=== PATIENT | male | born 1955 | race Caucasian/White ===

== ENCOUNTER 2018-04-20 21:41 | Observation (INO) | payer BC ==
[2018-04-20] MEDS ORDERED: ASPIRIN 81 MG PO STA (21:57)
--- NOTE | 2018-04-20 21:57 | ED ---
Chest Pain HPI - General Chief Complaint: Chest Pain Stated Complaint: Chest pressure Time Seen by Provider: 04/20/18 21:55 Source: patient, family Mode of arrival: wheelchair Limitations: no limitations - History of Present Illness Initial Comments: Wendy is a 62-year-old male with a history of hypertension hyperlipidemia and a distant history of gastric cancer which was treated surgically 10 years ago. Patient presents to the emergency department for evaluation of he describes as severe indigestion. Patient reports he has multiple food ALLERGIES and food sensitivities. He didn't eat a breakfast scramble this morning and had mushrooms and notes that in the past much or subcostal him some diarrhea. Patient reports that throughout the entire day he has had burning epigastric and retrosternal discomfort. He has taken Prilosec and chewable antacids with no relief. The discomfort is associated with anorexia and decreased appetite, no shortness of breath, dyspnea, diaphoresis. The discomfort is not exertional. The patient has no known cardiac history. No family history of early cardiac disease. - Related Data Home Medications Medication Instructions Recorded Confirmed Allopurinol [Zyloprim] 300 mg PO DAILY 04/20/18 04/21/18 Lisinopril 20 mg PO DAILY 04/20/18 04/21/18 Celecoxib [CeleBREX] 200 mg PO DAILY 04/21/18 04/21/18 Allergies Allergy/AdvReac Type Severity Reaction Status Date / Time chocolate flavor Allergy Rash/Hives Verified 04/21/18 00:51 Fish Containing Products Allergy Anaphylaxis Verified 04/21/18 00:51 shellfish derived [Shellfish] Allergy Anaphylaxis Verified 04/21/18 00:51 Review of Systems ROS Statement: Those systems with pertinent positive or pertinent negative responses have been documented in the HPI. ROS Other: All systems not noted in ROS Statement are negative. EKG Findings - EKG Comments: EKG Findings:: EKG obtained at 2202, rate is 71, rhythm is sinus, normal axis, normal intervals, NV 180, QRS 104, QTC 421. She no acute ST elevations or depressions no evidence of acute ischemia or infarction Past Medical History Past Medical History: Cancer, GERD/Reflux, Hypertension, Osteoarthritis (OA) Additional Past Medical History / Comment(s): gout History of Any Multi-Drug Resistant Organisms: None Reported Past Surgical History: Bowel Resection, Hernia Repair, Orthopedic Surgery Additional Past Surgical History / Comment(s): stomach cancer Past Psychological History: No Psychological Hx Reported Smoking Status: Never smoker Past Alcohol Use History: Daily Past Drug Use History: None Reported - Past Family History Father Family Medical History: AFIB Mother Family Medical History: AFIB, AICD/Pacemaker, Cancer Additional Family Medical History / Comment(s): breast CA, stomach CA General Exam Limitations: no limitations Course Vital Signs 04/20/18 04/20/18 04/20/18 21:44 22:25 22:40 Temperature 98.7 F 98.1 F Pulse Rate 85 62 66 Respiratory 18 16 16 Rate Blood Pressure 159/90 141/86 141/86 O2 Sat by Pulse 98 94 L 98 Oximetry 04/21/18 00:43 Temperature 98.1 F Pulse Rate 66 Respiratory 15 Rate Blood Pressure 115/52 O2 Sat by Pulse 98 Oximetry Chest Pain [facility] The patient was seen and evaluated Is a 62-year-old male with a history of hypertension and hyperlipidemia who presents with retrosternal chest pain and burning which has not resolved with treatment with [id number] antacids. Patient has seen cardiology in the past, his last stress test was greater than 2 years ago he has never had a cardiac catheterization. Cardiac workup was ordered EKG is nonischemic Labs were unremarkable Patient received aspirin and a GI cocktail he reported minimal improvement in his symptoms. Considering the patient's risk factors i do feel he warrants admission for further evaluation by cardiology HEART Score 3 I discussed with the patient options for discharge home and close follow-up with primary care and cardiology versus observation for evaluation by cardiology. Patient states that based on how he is feeling at this time is not comfortable with discharge home. Patient care discussed with Dr. Garduno who accepts admission with consult to cardiology Disposition Clinical Impression: Chest pain Disposition: ADMITTED IP TO THIS HOSP Condition: Stable Is patient prescribed a controlled substance at d/c from ED?: No
[2018-04-20 22:09] LABS: Basophils % (A) 0 %; Eosinophils # (A) 0.2 k/uL (0-0.7); Eosinophils % (A) 3 %; HCT 45.6 % (39.0-53.0); HGB 15.2 gm/dL (13.0-17.5); Lymphocytes # (A) 1.4 k/uL (1.0-4.8); Lymphocytes % (A) 16 %; MCH 30.3 pg (25.0-35.0); MCHC 33.5 g/dL (31.0-37.0); MCV 90.4 fL (80.0-100.0); Mean Platelet Volume 6.2; Monocytes # (A) 0.4 k/uL (0-1.0); Monocytes % (A) 4 %; Neutrophils # (A) 6.5 k/uL (1.3-7.7); Neutrophils % (A) 76 %; Platelet Count 185 k/uL (150-450); RBC 5.04 m/uL (4.30-5.90); WBC 8.7 k/uL (3.8-10.6)
[2018-04-20] MEDS ORDERED: MAG HYDROX/AL HYDROX/SIMETH 30 ML, HYOSCYAMINE ELIXIR 10 ML, CIMETIDINE HCL 300 MG, LID... PO STA ×4 (22:12)
[2018-04-20 22:18] LABS: ALT 38 U/L (21-72); AST 35 U/L (17-59); Alkaline Phosphatase 82 U/L (38-126); Anion Gap 8 mmol/L; Blood Urea Nitrogen 23 mg/dL (9-20); Calcium 9.4 mg/dL (8.4-10.2); Carbon Dioxide 20 mmol/L (22-30); Chloride 110 mmol/L (98-107); Glucose 104 mg/dL (74-99); Magnesium 2.2 mg/dL (1.6-2.3); Potassium 4.4 mmol/L (3.5-5.1); Sodium 138 mmol/L (137-145); Total Bilirubin 0.5 mg/dL (0.2-1.3); Total Protein 6.7 g/dL (6.3-8.2)
--- NOTE | 2018-04-20 22:27 | XR ---
EXAMINATION TYPE: XR chest 2V DATE OF EXAM: 04/20/2018 COMPARISON: 07/15/2010 HISTORY: Allergic reaction. Chest pain TECHNIQUE: Frontal and lateral views of the chest are obtained. FINDINGS: Heart and mediastinum are normal. Lungs are clear. Diaphragm is normal. There is spurring in the thoracic spine. There are chest leads. Bony thorax is intact. IMPRESSION: No active cardiopulmonary disease. No change.
[2018-04-20 22:32] LABS: Partial Thromboplastin Time 23.4 sec (22.0-30.0); Prothrombin Time 9.6 sec (9.0-12.0)
[2018-04-20] MEDS ORDERED: SODIUM CHLORIDE 0.9% 1,000 ML IV ONE (22:47)
[2018-04-21] MEDS ORDERED: NITROGLYCERIN SL TABS 0.4 MG TAB SUBLINGUAL PRN (00:08)
[2018-04-21] MEDS ORDERED: MAG HYDROX/AL HYDROX/SIMETH 30 ML CUP PO PRN ×2 (00:48→09:57)
[2018-04-21 01:03] VITALS: BMI 33.0
[2018-04-21] MEDS ORDERED: ONDANSETRON 4 MG/2 ML VIAL IVP PRN (01:17)
[2018-04-21] MEDS: MORPHINE SULFATE 4 MG/ML SYRINGE IVP PRN ×2 (01:23→23:40)
[2018-04-21 04:45] LABS: Creatine Kinase 78 U/L (55-170)
[2018-04-21 04:58] LABS: Creatine Kinase MB 1.3 ng/mL (0.0-2.4); Troponin I <0.012 ng/mL (0.000-0.034)
--- NOTE | 2018-04-21 09:01 | P.HPIM ---
History of Present Illness H&P Date: 04/21/18 Chief Complaint: chest pain This is a 62-year-old male patient of Dr. Zavala. Patient presented to the emergency room with complaints of indigestion chest pain that started yesterday. Patient stated that a few days ago he did have an episode of chest pressure that lasted a couple minutes and then subsided. Patient also admits that he is very sensitive to food and patient states he did consume greasy food yesterday. Patient states he took Prilosec and found no relief with the pain and presented to the emergency room. Patient is known past medical history of gastric cancer proximally 10 years ago at which she received surgery but did not require radiation and chemotherapy. Additional medical history includes hypertension, hyperlipidemia and patient states he drinks 4-5 beers a night. EKG completed showing normal sinus rhythm possible left atrial enlargement. Chest x-ray completed showing no active cardiopulmonary disease. No change. Troponins negative. At this time patient denies any chest pain or shortness of breath. Patient is still complaining of indigestion pain. Patient denies nausea vomiting or diarrhea. Patient denies any urinary burning or frequency. Cardiology services have been consulted Review of Systems please refer to HPI otherwise unremarkable Past Medical History Past Medical History: Cancer, GERD/Reflux, Hypertension, Osteoarthritis (OA) Additional Past Medical History / Comment(s): gout History of Any Multi-Drug Resistant Organisms: None Reported Past Surgical History: Bowel Resection, Hernia Repair, Orthopedic Surgery Additional Past Surgical History / Comment(s): stomach cancer Past Anesthesia/Blood Transfusion Reactions: No Reported Reaction Past Psychological History: No Psychological Hx Reported Smoking Status: Never smoker Past Alcohol Use History: Daily Past Drug Use History: None Reported - Past Family History Father Family Medical History: AFIB Mother Family Medical History: AFIB, AICD/Pacemaker, Cancer Additional Family Medical History / Comment(s): breast CA, stomach CA Medications and Allergies Home Medications Medication Instructions Recorded Confirmed Type Allopurinol [Zyloprim] 300 mg PO DAILY 04/20/18 04/21/18 History Lisinopril 20 mg PO DAILY 04/20/18 04/21/18 History Celecoxib [CeleBREX] 200 mg PO DAILY 04/21/18 04/21/18 History Allergies Allergy/AdvReac Type Severity Reaction Status Date / Time chocolate flavor Allergy Rash/Hives Verified 04/21/18 07:50 Fish Containing Products Allergy Anaphylaxis Verified 04/21/18 07:50 shellfish derived [Shellfish] Allergy Anaphylaxis Verified 04/21/18 07:50 Physical Exam Vitals: Vital Signs Temp Pulse Pulse Resp BP BP Pulse Ox 04/21/18 08:00 99.3 F 71 18 121/76 98 04/21/18 04:00 97.4 F L 61 16 108/67 99 04/21/18 03:51 16 04/21/18 01:31 16 04/21/18 00:49 97.6 F 56 L 16 124/74 98 04/21/18 00:43 98.1 F 66 15 115/52 98 04/20/18 22:40 66 16 141/86 98 04/20/18 22:25 98.1 F 62 16 141/86 94 L 04/20/18 21:44 98.7 F 85 18 159/90 98 Intake and Output 04/20/18 04/21/18 04/21/18 22:59 06:59 14:59 Other: # Voids 1 Weight 104.326 kg 104.3 kg Head normocephalic Neck supple Lungs clear to auscultation bilaterally no wheezing or crackles Heart regular rate and rhythm S1-S2, no rub or gallop Abdomen mid epigastric tenderness with palpation Extremities no edema Neuro alert and orientated to 3 Results CBC & Chem 7: 04/20/18 21:59 04/20/18 21:59 Labs: Abnormal Lab Results - Last 24 Hours (Table) 04/20/18 Range/Units 21:59 Chloride 110 H (98-107) mmol/L Carbon Dioxide 20 L (22-30) mmol/L BUN 23 H (9-20) mg/dL Glucose 104 H (74-99) mg/dL Thrombosis Risk Factor Assmnt - Choose All That Apply Each Risk Factor Represents 2 Points: Age 61-74 years Thrombosis Risk Factor Assessment Total Risk Factor Score: 2 Thrombosis Risk Factor Assessment Level: Low Risk Assessment and Plan Assessment: 1. Indigestion. Chest x-ray negative. EKG showing normal sinus rhythm. Possible left atrial enlargement. Troponins negative. Cardiology service consulted. Amylase and lipase ordered 2. History of gastric cancer 10 years prior. Patient states he had surgery did not require radiation or chemotherapy 3. History of GERD 4. History of essential hypertension 5. History of hyperlipidemia 6. Alcohol consumption. Patient states he drinks 4-5 beers a night Time with Patient: Greater than 30 (Greater than 60% of the total time spent in counseling and coordination of care. I performed an examination of the patient and discussed their management with the Nurse Practitioner. I have reviewed the Nurse Practitioner's notes and agree with the documented findings and plan of care)
[2018-04-21 09:44] LABS: HCT 42.6 % (39.0-53.0); HGB 14.1 gm/dL (13.0-17.5); MCH 30.1 pg (25.0-35.0); MCHC 33.1 g/dL (31.0-37.0); MCV 90.9 fL (80.0-100.0); RBC 4.68 m/uL (4.30-5.90); RDW 13.9 % (11.5-15.5)
[2018-04-21 09:45] LABS: Basophils % (A) 0 %; Eosinophils # (A) 0.2 k/uL (0-0.7); Eosinophils % (A) 3 %; Lymphocytes # (A) 0.9 k/uL (1.0-4.8); Lymphocytes % (A) 12 %; Mean Platelet Volume 6.3; Monocytes # (A) 0.3 k/uL (0-1.0); Monocytes % (A) 4 %; Neutrophils # (A) 5.5 k/uL (1.3-7.7); Neutrophils % (A) 79 %; Platelet Count 173 k/uL (150-450)
[2018-04-21 09:53] LABS: ALT 35 U/L (21-72); AST 23 U/L (17-59); Albumin 3.6 g/dL (3.5-5.0); Alkaline Phosphatase 70 U/L (38-126); Amylase 52 U/L (30-110); Anion Gap 6 mmol/L; Blood Urea Nitrogen 18 mg/dL (9-20); Calcium 8.9 mg/dL (8.4-10.2); Carbon Dioxide 24 mmol/L (22-30); Chloride 110 mmol/L (98-107); Glucose 98 mg/dL (74-99); Potassium 4.4 mmol/L (3.5-5.1); Sodium 140 mmol/L (137-145); Total Bilirubin 0.7 mg/dL (0.2-1.3); Total Protein 6.2 g/dL (6.3-8.2)
[2018-04-21] MEDS ORDERED: COLCHICINE 0.6 MG EACH PO PRN (09:55)
[2018-04-21 10:08] LABS: Creatine Kinase 68 U/L (55-170)
[2018-04-21 10:22] LABS: Troponin I <0.012 ng/mL (0.000-0.034)
--- NOTE | 2018-04-21 10:38 | US ---
EXAMINATION TYPE: US abdomen complete DATE OF EXAM: 04/21/2018 COMPARISON: NONE CLINICAL HISTORY: epigastric pain. Epigastric pain, NPO EXAM MEASUREMENTS: Liver Length: 15.4 cm Gallbladder Wall: 0.2 cm CHD: 0.3 cm Spleen: 11.3 cm Right Kidney: 11.0 x 4.9 x 6.3 cm Left Kidney: 12.1 x 4.4 x 4.7 cm Limited exam due to overlying bowel gas and patient habitus Pancreas: Head and tail not visualized due to overlying bowel gas. Body appears echogenic and heter ogenous. Liver: Scanned through ribs. Limited visualization due to bowel gas. Gallbladder: fold seen, wnl Evidence for sonographic Su's sign: neg CBD: Obscured by overlying bowel gas CHD: wnl Spleen: wnl Right Kidney: wnl Left Kidney: wnl Upper IVC: Obscured by overlying bowel gas Abd Aorta: Portions obscured by overlying bowel gas, limited visualization The pancreas is poorly visualized. The liver is normal in size without biliary dilatation. The gallbladder is unremarkable without cholelithiasis. The gallbladder wall measures 2 mm. The dista l common hepatic duct measures 3 mm. There is a negative sonographic Su's sign. The spleen is normal in size. Both kidneys appear normal. Visualized portions of aorta and IVC are normal. IMPRESSION: NORMAL ABDOMINAL ULTRASOUND.
[2018-04-21] MEDS: MELOXICAM 7.5 MG TAB PO SCH (11:28)
[2018-04-21] MEDS: LISINOPRIL 10 MG TAB PO SCH (11:28)
--- NOTE | 2018-04-21 11:40 | P.GSCN ---
History of Present Illness Consult date: 04/21/18 Reason for Consult: Chest pain, history of gastric cancer History of present illness: The patient's a 62-year-old man who presented to the emergency department with significant pain/pressure in the lower chest. He thought it could possibly be due to some acid reflux but he had never had anything this severe in the past. The reflux was more of an issue for him prior to his gastric surgery. Since then it occurs rarely. He will taken omeprazole. He has been out of omeprazole lately. He was concerned the chest pain could be from his heart so came into the emergency department. The pain and pressure was initially better after a GI cocktail yesterday. It is recurred today. No nausea or vomiting. No fevers or chills. No cough. No diarrhea or constipation. Denies shortness of breath. He did have a partial gastrectomy about 10 years ago at the [facility]. He had regular follow-up therefore 7 or 8 years. After that time his been following up with Dr. Ortez here in [facility]. His last EGD and colonoscopy were about 1.5-2 years ago and the patient reports it as normal. He 's never had significant esophagitis on his endoscopies. He did have a breakfast scramble yesterday consisting of scrambled eggs, sausage, brady, mushrooms. He will occasionally have problems if the mushrooms are freshly sliced versus canned. Nothing this severe however. Normally no fatty food problems. Review of Systems All systems: negative Past Medical History Past Medical History: Cancer, GERD/Reflux, Hypertension, Osteoarthritis (OA) Additional Past Medical History / Comment(s): gout History of Any Multi-Drug Resistant Organisms: None Reported Past Surgical History: Bowel Resection, Hernia Repair, Orthopedic Surgery Additional Past Surgical History / Comment(s): stomach cancer Past Anesthesia/Blood Transfusion Reactions: No Reported Reaction Past Psychological History: No Psychological Hx Reported Smoking Status: Never smoker Past Alcohol Use History: Daily Past Drug Use History: None Reported - Past Family History Father Family Medical History: AFIB Mother Family Medical History: AFIB, AICD/Pacemaker, Cancer Additional Family Medical History / Comment(s): breast CA, stomach CA Medications and Allergies Home Medications Medication Instructions Recorded Confirmed Type Allopurinol [Zyloprim] 300 mg PO DAILY 04/20/18 04/21/18 History Lisinopril 20 mg PO DAILY 04/20/18 04/21/18 History Celecoxib [CeleBREX] 200 mg PO DAILY 04/21/18 04/21/18 History Allergies Allergy/AdvReac Type Severity Reaction Status Date / Time chocolate flavor Allergy Rash/Hives Verified 04/21/18 07:50 Fish Containing Products Allergy Anaphylaxis Verified 04/21/18 07:50 shellfish derived [Shellfish] Allergy Anaphylaxis Verified 04/21/18 07:50 Surgical - Exam Osteopathic Statement: *. No significant issues noted on an osteopathic structural exam other than those noted in the History and Physical/Consult. Vital Signs Temp Pulse Resp BP Pulse Ox 98.7 F 85 18 159/90 98 04/20/18 21:44 04/20/18 21:44 04/20/18 21:44 04/20/18 21:44 04/20/18 21:44 - General well developed, well nourished, no distress - Eyes normal ocular movement - Neck trachea midline, no lymphadectomy - Respiratory normal expansion, normal respiratory effort, clear to auscultation - Cardiovascular Rhythm: regular Abnormal Heart Sounds: systolic murmur (Faint 1 to 2/6 systolic ejection murmur) - Abdomen Abdomen: soft, non tender, bowel sounds, no guarding, no rigid, no rebound, no distended Results - Labs 04/21/18 09:06 04/21/18 09:06 Abnormal Lab Results - Last 24 Hours (Table) 04/20/18 04/21/18 04/21/18 Range/Units 21:59 09:06 09:06 Lymphocytes # 0.9 L (1.0-4.8) k/uL Chloride 110 H 110 H (98-107) mmol/L Carbon Dioxide 20 L (22-30) mmol/L BUN 23 H (9-20) mg/dL Glucose 104 H (74-99) mg/dL Total Protein 6.2 L (6.3-8.2) g/dL Diabetes panel 04/20/18 04/21/18 Range/Units 21:59 09:06 Sodium 138 140 (137-145) mmol/L Potassium 4.4 4.4 (3.5-5.1) mmol/L Chloride 110 H 110 H (98-107) mmol/L Carbon Dioxide 20 L 24 (22-30) mmol/L BUN 23 H 18 (9-20) mg/dL Creatinine 1.02 0.99 (0.66-1.25) mg/dL Glucose 104 H 98 (74-99) mg/dL Calcium 9.4 8.9 (8.4-10.2) mg/dL AST 35 23 (17-59) U/L ALT 38 35 (21-72) U/L Alkaline Phosphatase 82 70 (38-126) U/L Total Protein 6.7 6.2 L (6.3-8.2) g/dL Albumin 4.0 3.6 (3.5-5.0) g/dL Calcium panel 04/20/18 04/21/18 Range/Units 21:59 09:06 Calcium 9.4 8.9 (8.4-10.2) mg/dL Albumin 4.0 3.6 (3.5-5.0) g/dL Pituitary panel 04/20/18 04/21/18 Range/Units 21:59 09:06 Sodium 138 140 (137-145) mmol/L Potassium 4.4 4.4 (3.5-5.1) mmol/L Chloride 110 H 110 H (98-107) mmol/L Carbon Dioxide 20 L 24 (22-30) mmol/L BUN 23 H 18 (9-20) mg/dL Creatinine 1.02 0.99 (0.66-1.25) mg/dL Glucose 104 H 98 (74-99) mg/dL Calcium 9.4 8.9 (8.4-10.2) mg/dL Adrenal panel 04/20/18 04/21/18 Range/Units 21:59 09:06 Sodium 138 140 (137-145) mmol/L Potassium 4.4 4.4 (3.5-5.1) mmol/L Chloride 110 H 110 H (98-107) mmol/L Carbon Dioxide 20 L 24 (22-30) mmol/L BUN 23 H 18 (9-20) mg/dL Creatinine 1.02 0.99 (0.66-1.25) mg/dL Glucose 104 H 98 (74-99) mg/dL Calcium 9.4 8.9 (8.4-10.2) mg/dL Total Bilirubin 0.5 0.7 (0.2-1.3) mg/dL AST 35 23 (17-59) U/L ALT 38 35 (21-72) U/L Alkaline Phosphatase 82 70 (38-126) U/L Total Protein 6.7 6.2 L (6.3-8.2) g/dL Albumin 4.0 3.6 (3.5-5.0) g/dL Assessment and Plan (1) History of gastric cancer Current Visit: Yes Status: Acute Code(s): Z85.028 - PERSONAL HISTORY OF OTHER MALIGNANT NEOPLASM OF STOMACH SNOMED Code(s): 127250290 (2) GERD (gastroesophageal reflux disease) Current Visit: Yes Status: Acute Code(s): K21.9 - GASTRO-ESOPHAGEAL REFLUX DISEASE WITHOUT ESOPHAGITIS SNOMED Code(s): 345703249 (3) Chest pain Current Visit: Yes Status: Acute Code(s): R07.9 - CHEST PAIN, UNSPECIFIED SNOMED Code(s): 31736421 Plan: Awaiting cardiology recommendations. The patient has just had a ultrasound of his abdomen performed. Think he needs a repeat EGD performed. Since Dr. Choi has done this in the past I did contact Dr. Choi who will do this for the patient tomorrow.
[2018-04-21] MEDS: ALLOPURINOL 300 MG TAB PO SCH (13:09)
--- NOTE | 2018-04-21 14:57 | P.CONS ---
History of Present Illness - Reason for Consult Consult date: 04/21/18 Chest pain - History of Present Illness This is a 62-year-old male patient with past medical history for hypertension, borderline hyperlipidemia not on medication, history of gastric cancer treated at [facility] with removal of two thirds of the stomach not requiring chemotherapy or radiation therapy. His last EGD and colonoscopy done one and half years ago. Patient complains of heaviness in his chest that increases with deep inspiration. He states it started after he had breakfast around 10 or 11 in the morning and felt like indigestion. He states it feels like a big hollow spot in his chest and hurts. He denies having any nausea or vomiting. No diarrhea. He states he has feels like he has no energy. He also feels that liquids are not going down like they should. He denies having this sensation in the past. He does have food ALLERGIES and initially thought this was related to a food ALLERGY and took Benadryl on his way here that did not seem to help. He did receive a GI cocktail and Maalox in the ER which seemed to help his discomfort. Patient denies history of myocardial infarction. He has not had a heart catheterization. He had a stress test done 2 years ago which was okay. Patient does drink 4-5 beers daily. He is been a lifelong nonsmoker. Patient was placed on the observation unit EKG reveals sinus mechanism with no acute ST-T wave changes. Chest x-ray reveals no active cardio pulmonary disease. Laboratory data review: WBC 7, hemoglobin 14.1, platelets 173, sodium 140, potassium 4.4, creatinine 0.99, cardiac enzymes negative on 3 draws, lipase 41. Current cardiac medications include lisinopril 20 mg daily. At the time of my exam: CONSTITUTIONAL: Denies fever. Denies chills. EYES: Denies blurred vision. Denies vision changes. Denies eye pain. EARS, NOSE, MOUTH & THROAT: Denies headache. Denies sore throat. Denies ear pain. CARDIOVASCULAR: Complains of chest pain. Denies shortness of breath. Denies orthopnea. Denies PND. Denies palpitations. RESPIRATORY: Denies cough. GASTROINTESTINAL: Complains of abdominal pain. Denies diarrhea. Denies constipation. Denies nausea. Denies vomiting. Complains of heartburn, complains of liquids not going down esophagus MUSCULOSKELETAL: Denies myalgias. Complains of pain to the left elbow. INTEGUMENTARY: Denies pruitis. Denies rash. NEUROLOGIC: Denies numbness. Denies tingling. Denies weakness. PSYCHIATRIC: Denies anxiety. Denies depression. ENDOCRINE: Denies fatigue. Denies weight change. Denies polydipsia. Denies polyurina. GENITOURINARY: Denies burning, hematuria or urgency with micturation. HEMATOLOGIC: Denies history of anemia. Denies bleeding. Blood pressure 121/76, heart rate 71, afebrile, maintaining oxygen saturation on room air. GENERAL: This is a 62-year-old male. He is sitting up in bed and appears to be comfortable and in no acute distress. HEENT: Head is atraumatic, normocephalic. Pupils are equal, round. Sclerae anicteric. Conjunctivae are clear. Mucous membranes of the mouth are moist. Neck is supple. There is no jugular venous distention. No carotid bruit is heard. LUNGS: Clear to auscultation no wheezes, rales or rhonchi. No chest wall tenderness is noted on palpation or with deep breathing. HEART: Regular rate and rhythm without murmurs, rubs or gallops. S1 and S2 heard. ABDOMEN: Soft, epigastric tenderness. Bowel sounds are heard. No organomegaly noted. EXTREMITIES: No evidence of lower extremity edema and no calf tenderness noted. Left elbow warm to touch, red and swollen. VASCULAR: Radial and dorsalis pedis pulses palpated, no evidence of clubbing. NEUROLOGIC: Patient is awake, alert and oriented x3. ASSESSMENT Chest pain, atypical. An acute coronary event has been ruled out. Hypertension. Borderline hyperlipidemia. History of gastric cancer status post gastrectomy. Gastroesophageal reflux disease. Gout. Alcohol abuse. PLAN An acute coronary event has been ruled out. Exact etiology of chest pain is most likely secondary to gastric reflux, esophagitis. Consult general surgery. Patient is scheduled for EGD with Dr. Choi tomorrow. Monitor for alcohol withdrawal. Continue lisinopril 20 mg daily. Thank you kindly for this consultation. Nurse Practitioner note has been reviewed, I agree with a documented findings and plan of care. Patient was seen and examined. Past Medical History Past Medical History: Cancer, GERD/Reflux, Hypertension, Osteoarthritis (OA) Additional Past Medical History / Comment(s): gout History of Any Multi-Drug Resistant Organisms: None Reported Past Surgical History: Bowel Resection, Hernia Repair, Orthopedic Surgery Additional Past Surgical History / Comment(s): stomach cancer Past Anesthesia/Blood Transfusion Reactions: No Reported Reaction Past Psychological History: No Psychological Hx Reported Smoking Status: Never smoker Past Alcohol Use History: Daily Past Drug Use History: None Reported - Past Family History Father Family Medical History: AFIB Mother Family Medical History: AFIB, AICD/Pacemaker, Cancer Additional Family Medical History / Comment(s): breast CA, stomach CA Medications and Allergies Home Medications Medication Instructions Recorded Confirmed Type Allopurinol [Zyloprim] 300 mg PO DAILY 04/20/18 04/21/18 History Lisinopril 20 mg PO DAILY 04/20/18 04/21/18 History Celecoxib [CeleBREX] 200 mg PO DAILY 04/21/18 04/21/18 History Allergies Allergy/AdvReac Type Severity Reaction Status Date / Time chocolate flavor Allergy Rash/Hives Verified 04/21/18 07:50 Fish Containing Products Allergy Anaphylaxis Verified 04/21/18 07:50 shellfish derived [Shellfish] Allergy Anaphylaxis Verified 04/21/18 07:50 Physical Exam Vitals: Vital Signs Temp Pulse Pulse Resp BP BP Pulse Ox 04/21/18 08:00 99.3 F 71 18 121/76 98 04/21/18 04:00 97.4 F L 61 16 108/67 99 04/21/18 03:51 16 04/21/18 01:31 16 04/21/18 00:49 97.6 F 56 L 16 124/74 98 04/21/18 00:43 98.1 F 66 15 115/52 98 04/20/18 22:40 66 16 141/86 98 04/20/18 22:25 98.1 F 62 16 141/86 94 L 04/20/18 21:44 98.7 F 85 18 159/90 98 Intake and Output 04/20/18 04/21/18 04/21/18 22:59 06:59 14:59 Other: # Voids 1 Weight 104.326 kg 104.3 kg Results CBC & Chem 7: 04/21/18 09:06 04/21/18 09:06 Labs: Abnormal Lab Results - Last 24 Hours (Table) 04/20/18 Range/Units 21:59 Chloride 110 H (98-107) mmol/L Carbon Dioxide 20 L (22-30) mmol/L BUN 23 H (9-20) mg/dL Glucose 104 H (74-99) mg/dL
--- NOTE | 2018-04-21 15:00 | P.CRDCN ---
History of Present Illness Consult date: 04/21/18 History of present illness: This is a 62-year-old male patient with past medical history for hypertension, borderline hyperlipidemia not on medication, history of gastric cancer treated at [facility] with removal of two thirds of the stomach not requiring chemotherapy or radiation therapy. His last EGD and colonoscopy done one and half years ago. Patient complains of heaviness in his chest that increases with deep inspiration. He states it started after he had breakfast around 10 or 11 in the morning and felt like indigestion. He states it feels like a big hollow spot in his chest and hurts. He denies having any nausea or vomiting. No diarrhea. He states he has feels like he has no energy. He also feels that liquids are not going down like they should. He denies having this sensation in the past. He does have food ALLERGIES and initially thought this was related to a food ALLERGY and took Benadryl on his way here that did not seem to help. He did receive a GI cocktail and Maalox in the ER which seemed to help his discomfort. Patient denies history of myocardial infarction. He has not had a heart catheterization. He had a stress test done 2 years ago which was okay. Patient does drink 4-5 beers daily. He is been a lifelong nonsmoker. Patient was placed on the observation unit EKG reveals sinus mechanism with no acute ST-T wave changes. Chest x-ray reveals no active cardio pulmonary disease. Laboratory data review: WBC 7, hemoglobin 14.1, platelets 173, sodium 140, potassium 4.4, creatinine 0.99, cardiac enzymes negative on 3 draws, lipase 41. Current cardiac medications include lisinopril 20 mg daily. At the time of my exam: CONSTITUTIONAL: Denies fever. Denies chills. EYES: Denies blurred vision. Denies vision changes. Denies eye pain. EARS, NOSE, MOUTH & THROAT: Denies headache. Denies sore throat. Denies ear pain. CARDIOVASCULAR: Complains of chest pain. Denies shortness of breath. Denies orthopnea. Denies PND. Denies palpitations. RESPIRATORY: Denies cough. GASTROINTESTINAL: Complains of abdominal pain. Denies diarrhea. Denies constipation. Denies nausea. Denies vomiting. Complains of heartburn, complains of liquids not going down esophagus MUSCULOSKELETAL: Denies myalgias. Complains of pain to the left elbow. INTEGUMENTARY: Denies pruitis. Denies rash. NEUROLOGIC: Denies numbness. Denies tingling. Denies weakness. PSYCHIATRIC: Denies anxiety. Denies depression. ENDOCRINE: Denies fatigue. Denies weight change. Denies polydipsia. Denies polyurina. GENITOURINARY: Denies burning, hematuria or urgency with micturation. HEMATOLOGIC: Denies history of anemia. Denies bleeding. Blood pressure 121/76, heart rate 71, afebrile, maintaining oxygen saturation on room air. GENERAL: This is a 62-year-old male. He is sitting up in bed and appears to be comfortable and in no acute distress. HEENT: Head is atraumatic, normocephalic. Pupils are equal, round. Sclerae anicteric. Conjunctivae are clear. Mucous membranes of the mouth are moist. Neck is supple. There is no jugular venous distention. No carotid bruit is heard. LUNGS: Clear to auscultation no wheezes, rales or rhonchi. No chest wall tenderness is noted on palpation or with deep breathing. HEART: Regular rate and rhythm without murmurs, rubs or gallops. S1 and S2 heard. ABDOMEN: Soft, epigastric tenderness. Bowel sounds are heard. No organomegaly noted. EXTREMITIES: No evidence of lower extremity edema and no calf tenderness noted. Left elbow warm to touch, red and swollen. VASCULAR: Radial and dorsalis pedis pulses palpated, no evidence of clubbing. NEUROLOGIC: Patient is awake, alert and oriented x3. ASSESSMENT Chest pain, atypical. An acute coronary event has been ruled out. Hypertension. Borderline hyperlipidemia. History of gastric cancer status post gastrectomy. Gastroesophageal reflux disease. Gout. Alcohol abuse. PLAN An acute coronary event has been ruled out. Exact etiology of chest pain is most likely secondary to gastric reflux, esophagitis. Consult general surgery. Patient is scheduled for EGD with Dr. Choi tomorrow. Monitor for alcohol withdrawal. Continue lisinopril 20 mg daily. Thank you kindly for this consultation. Nurse Practitioner note has been reviewed, I agree with a documented findings and plan of care. Patient was seen and examined. Past Medical History Past Medical History: Cancer, GERD/Reflux, Hypertension, Osteoarthritis (OA) Additional Past Medical History / Comment(s): gout History of Any Multi-Drug Resistant Organisms: None Reported Past Surgical History: Bowel Resection, Hernia Repair, Orthopedic Surgery Additional Past Surgical History / Comment(s): stomach cancer Past Anesthesia/Blood Transfusion Reactions: No Reported Reaction Past Psychological History: No Psychological Hx Reported Smoking Status: Never smoker Past Alcohol Use History: Daily Past Drug Use History: None Reported - Past Family History Father Family Medical History: AFIB Mother Family Medical History: AFIB, AICD/Pacemaker, Cancer Additional Family Medical History / Comment(s): breast CA, stomach CA Medications and Allergies Home Medications Medication Instructions Recorded Confirmed Type Allopurinol [Zyloprim] 300 mg PO DAILY 04/20/18 04/21/18 History Lisinopril 20 mg PO DAILY 04/20/18 04/21/18 History Celecoxib [CeleBREX] 200 mg PO DAILY 04/21/18 04/21/18 History Allergies Allergy/AdvReac Type Severity Reaction Status Date / Time chocolate flavor Allergy Rash/Hives Verified 04/21/18 07:50 Fish Containing Products Allergy Anaphylaxis Verified 04/21/18 07:50 shellfish derived [Shellfish] Allergy Anaphylaxis Verified 04/21/18 07:50 Physical Exam Vitals: Vital Signs Temp Pulse Pulse Resp BP BP Pulse Ox 04/21/18 12:00 98.5 F 66 18 130/88 98 04/21/18 08:30 18 04/21/18 08:00 99.3 F 71 18 121/76 98 04/21/18 04:00 97.4 F L 61 16 108/67 99 04/21/18 03:51 16 04/21/18 01:31 16 04/21/18 00:49 97.6 F 56 L 16 124/74 98 04/21/18 00:43 98.1 F 66 15 115/52 98 04/20/18 22:40 66 16 141/86 98 04/20/18 22:25 98.1 F 62 16 141/86 94 L 04/20/18 21:44 98.7 F 85 18 159/90 98 Intake and Output 04/20/18 04/21/18 04/21/18 22:59 06:59 14:59 Intake Total 360 Balance 360 Intake: Oral 360 Other: Voiding Method Toilet # Voids 1 Weight 104.326 kg 104.3 kg Results 04/21/18 09:06 04/21/18 09:06 Cardiac Enzymes 04/20/18 04/20/18 04/21/18 Range/Units 21:59 21:59 03:55 AST 35 (17-59) U/L CK-MB (CK-2) 1.3 (0.0-2.4) ng/mL Troponin I <0.012 <0.012 (0.000-0.034) ng/mL 04/21/18 04/21/18 Range/Units 09:06 09:06 AST 23 (17-59) U/L CK-MB (CK-2) 1.0 (0.0-2.4) ng/mL Troponin I <0.012 (0.000-0.034) ng/mL Coagulation 04/20/18 Range/Units 21:59 PT 9.6 (9.0-12.0) sec APTT 23.4 (22.0-30.0) sec CBC 04/20/18 04/21/18 Range/Units 21:59 09:06 WBC 8.7 7.0 (3.8-10.6) k/uL RBC 5.04 4.68 (4.30-5.90) m/uL Hgb 15.2 14.1 (13.0-17.5) gm/dL Hct 45.6 42.6 (39.0-53.0) % Plt Count 185 173 (150-450) k/uL Comprehensive Metabolic Panel 04/20/18 04/21/18 Range/Units 21:59 09:06 Sodium 138 140 (137-145) mmol/L Potassium 4.4 4.4 (3.5-5.1) mmol/L Chloride 110 H 110 H (98-107) mmol/L Carbon Dioxide 20 L 24 (22-30) mmol/L BUN 23 H 18 (9-20) mg/dL Creatinine 1.02 0.99 (0.66-1.25) mg/dL Glucose 104 H 98 (74-99) mg/dL Calcium 9.4 8.9 (8.4-10.2) mg/dL AST 35 23 (17-59) U/L ALT 38 35 (21-72) U/L Alkaline Phosphatase 82 70 (38-126) U/L Total Protein 6.7 6.2 L (6.3-8.2) g/dL Albumin 4.0 3.6 (3.5-5.0) g/dL Current Medications Generic Name Dose Route Start Last Admin Trade Name Freq PRN Reason Stop Dose Admin Al Hydroxide/Mg Hydroxide 30 ml 04/21/18 09:57 Maalox PO Q4HR PRN GI Upset Allopurinol 300 mg 04/21/18 09:00 04/21/18 13:09 Zyloprim PO 300 mg DAILY PARVEZ Administration Aspirin 325 mg 04/22/18 09:00 Aspirin PO DAILY PARVEZ Colchicine 0.6 mg 04/21/18 09:55 04/21/18 13:09 Colcrys PO 0.6 mg BID PRN Administration Pain Lisinopril 10 mg 04/21/18 09:00 04/21/18 11:28 Zestril PO 10 mg DAILY PARVEZ Administration Meloxicam 7.5 mg 04/21/18 09:00 04/21/18 11:28 Mobic PO 7.5 mg DAILY PARVEZ Administration Morphine Sulfate 4 mg 04/21/18 01:16 04/21/18 01:23 Morphine Sulfate (Inj) IVP 4 mg Q4HR PRN Administration Pain Nitroglycerin 0.4 mg 04/21/18 00:08 Nitrostat SUBLINGUAL Q5M PRN Chest Pain Ondansetron HCl 4 mg 04/21/18 01:17 Zofran IVP Q6HR PRN Nausea And Vomiting Pantoprazole Sodium 40 mg 04/22/18 07:30 Protonix PO AC-BRKFST PARVEZ Intake and Output 04/20/18 04/21/18 04/21/18 22:59 06:59 14:59 Intake Total 360 Balance 360 Intake: Oral 360 Other: Voiding Method Toilet # Voids 1 Weight 104.326 kg 104.3 kg 04/21/18 09:06 04/21/18 09:06
[2018-04-21] MEDS ORDERED: methylPREDNISolone SOD SUCCI 125 MG/2 ML VIAL IV STA (19:20)
[2018-04-22] MEDS ORDERED: PANTOPRAZOLE 40 MG TABLET PO SCH (07:30)
[2018-04-22] MEDS ORDERED: ASPIRIN 325 MG TAB PO SCH (09:00)
[2018-04-22 09:54] LABS: Basophils % (A) 0 %; Eosinophils % (A) 1 %; HCT 44.3 % (39.0-53.0); HGB 14.7 gm/dL (13.0-17.5); Lymphocytes # (A) 0.6 k/uL (1.0-4.8); Lymphocytes % (A) 9 %; MCH 29.8 pg (25.0-35.0); MCHC 33.1 g/dL (31.0-37.0); MCV 89.8 fL (80.0-100.0); Mean Platelet Volume 6.5; Monocytes # (A) 0.1 k/uL (0-1.0); Monocytes % (A) 2 %; Neutrophils # (A) 5.9 k/uL (1.3-7.7); Neutrophils % (A) 87 %; Platelet Count 203 k/uL (150-450); RBC 4.93 m/uL (4.30-5.90); RDW 13.6 % (11.5-15.5); WBC 6.8 k/uL (3.8-10.6)
[2018-04-22 10:09] LABS: ALT 29 U/L (21-72); AST 16 U/L (17-59); Albumin 3.7 g/dL (3.5-5.0); Alkaline Phosphatase 66 U/L (38-126); Anion Gap 6 mmol/L; Blood Urea Nitrogen 18 mg/dL (9-20); Calcium 9.5 mg/dL (8.4-10.2); Carbon Dioxide 24 mmol/L (22-30); Chloride 109 mmol/L (98-107); Cholesterol 266 mg/dL (<200); Glucose 125 mg/dL (74-99); HDL Cholesterol 51 mg/dL (40-60); LDL Cholesterol,Calculated 194 mg/dL (0-99); Potassium 4.5 mmol/L (3.5-5.1); Sodium 139 mmol/L (137-145); Total Bilirubin 0.6 mg/dL (0.2-1.3); Total Protein 6.4 g/dL (6.3-8.2); Triglycerides 103 mg/dL (<150)
--- NOTE | 2018-04-22 10:25 | ECHOF ---
Referral Reason:Chest pain and cardiomyopathy MEASUREMENTS -------- HEIGHT: 180.3 cm WEIGHT: 103.9 kg BP: 119/73 RVIDd: 2.4 cm (< 3.3) IVSd: 1.8 cm (0.6 - 1.1) LVIDd: 2.7 cm (3.9 - 5.3) LVPWd: 1.7 cm (0.6 - 1.1) IVSs: 2.0 cm LVIDs: 1.7 cm LVPWs: 1.9 cm Ao Diam: 3.5 cm (2.0 - 3.7) AV Cusp: 1.2 cm (1.5 - 2.6) LA Diam: 3.5 cm (2.7 - 3.8) MV EXCURSION: 14.230 mm (> 18.000) MV EF SLOPE: 72 mm/s (70 - 150) EPSS: 0.3 cm MV E Andrae: 0.64 m/s MV DecT: 151 ms MV A Andrae: 0.72 m/s MV E/A Ratio: 0.89 AV maxP.84 mmHg AV meanP.92 mmHg RAP: 5.00 mmHg RVSP: 12.27 mmHg FINDINGS -------- Sinus rhythm. This was a technically difficult study with suboptimal views. The left ventricular size is normal. There is severe concentric left ventricular hypertrophy. Ove rall left ventricular systolic function is normal with, an EF between 55 - 60 %. The right ventricle is normal in size and function. The left atrium is normal in size. The right atrium is normal in size. Lumason used Aortic valve is trileaflet and is mildly thickened. There is mild aortic stenosis present. Peak/m earl gradient across the Aortic Valve is 17.84mmHg / 8.92mmHg. There is trace mitral regurgitation. Trace tricuspid regurgitation present. The right ventricular systolic pressure, as measured by Dopp ler, is 12.27mmHg. The pulmonic valve was not well visualized. The aortic root size is normal. The pericardium is normal. CONCLUSIONS -------- 1. Sinus rhythm. 2. This was a technically difficult study with suboptimal views. 3. The left ventricular size is normal. 4. There is severe concentric left ventricular hypertrophy. 5. Overall left ventricular systolic function is normal with, an EF between 55 - 60 %. 6. The right ventricle is normal in size and function. 7. The left atrium is normal in size. 8. The right atrium is normal in size. 9. Lumason used 10. Aortic valve is trileaflet and is mildly thickened. 11. There is mild aortic stenosis present. 12. Peak/mean gradient across the Aortic Valve is 17.84mmHg / 8.92mmHg. 13. There is trace mitral regurgitation. 14. Trace tricuspid regurgitation present. 15. The right ventricular systolic pressure, as measured by Doppler, is 12.27mmHg. 16. The pulmonic valve was not well visualized. 17. The aortic root size is normal. 18. The pericardium is normal. MOLD BUNCH TRIMMER: Lakia Quiroz RDCS
[2018-04-22 11:54] VITALS: BP 116/73; PULSE 85; RESP 16; TEMP 98.1
--- NOTE | 2018-04-22 12:41 | P.DS ---
Providers Date of admission: 04/21/18 00:26 Expected date of discharge: 04/22/18 Attending physician: John Garduno Consults: 04/21/18 00:08 Consult Physician Urgent Consulting Provider: [facility] Consult Reason/Comments: chest pain Do you want consulting provider notified?: Yes, Notify in am 04/21/18 09:38 Consult Physician Routine Consulting Provider: Nat Roque Consult Reason/Comments: abdominal pain/esophageal gastritis Do you want consulting provider notified?: Yes Primary care physician: Keke Zavala [facility] Course: Discharge diagnosis 1. GERD with chest discomfort. Chest x-ray negative. EKG showing normal sinus rhythm. Possible left atrial enlargement. Troponins negative. Cardiology service consulted. Amylase and lipase WNL. Abdominal ultrasound completed showing normal abdominal ultrasound. Surgical service consulted due to patient' s history. Patient arranged to get EGD. Patient would like to go home and come back for outpatient EGD at this time. Patient to be set up for outpatient EGD with Dr. adhikari tomorrow. 2-D echo completed showing EF between 55 and 60%. Stress test completed results pending. Discussed case with Dinorah MELENDREZ per cardiology services patient has been cleared for discharge from cardiology services. 2. History of gastric cancer 10 years prior. Patient states he had surgery did not require radiation or chemotherapy 3. History of GERD 4. History of essential hypertension 5. History of hyperlipidemia 6. Alcohol consumption. Patient states he drinks 4-5 beers a night. Patient educated on alcohol cessation Hospital course This is a 62-year-old male patient of Dr. Zavala. Patient presented to the emergency room with complaints of indigestion chest pain that started yesterday. Patient stated that a few days ago he did have an episode of chest pressure that lasted a couple minutes and then subsided. Patient also admits that he is very sensitive to food and patient states he did consume greasy food yesterday. Patient states he took Prilosec and found no relief with the pain and presented to the emergency room. Patient is known past medical history of gastric cancer proximally 10 years ago at which she received surgery but did not require radiation and chemotherapy. Additional medical history includes hypertension, hyperlipidemia and patient states he drinks 4-5 beers a night. EKG completed showing normal sinus rhythm possible left atrial enlargement. Chest x-ray completed showing no active cardiopulmonary disease. No change. Troponins negative. At this time patient denies any chest pain or shortness of breath. Patient is still complaining of indigestion pain. Patient denies nausea vomiting or diarrhea. Patient denies any urinary burning or frequency. Cardiology services have been consulted On 04/22/2018 patient had stress test completed. Discussed with cardiology services. Patient has been cleared for discharge from cardiology standpoint. Unfortunately patient was scheduled for EGD but is unable to complete today due to scheduling. Patient would like to go home at this time and come back for outpatient EGD with Dr. adhikari. At this time patient comes have significantly improved. Patient denies chest pain or shortness of breath at this time. Patient denies nausea vomiting or diarrhea. Patient is to follow-up closely with PCP. Patient also advised to follow-up for EGD outpatient tomorrow with Dr. adhikari. Patient will be DC'd on Protonix along with home medication. I performed an examination of the patient and discussed their management with the Nurse Practitioner. I have reviewed the Nurse Practitioner's notes and agree with the documented findings and plan of care Patient Condition at Discharge: Stable Plan - Discharge Summary New Discharge Prescriptions: New Pantoprazole [Protonix] 40 mg PO AC-BRKFST #30 tablet.dr De León Allopurinol [Zyloprim] 300 mg PO DAILY Lisinopril 20 mg PO DAILY Celecoxib [CeleBREX] 200 mg PO DAILY Discharge Medication List Allopurinol [Zyloprim] 300 mg PO DAILY 04/20/18 [History] Lisinopril 20 mg PO DAILY 04/20/18 [History] Celecoxib [CeleBREX] 200 mg PO DAILY 04/21/18 [History] Pantoprazole [Protonix] 40 mg PO AC-BRKFST #30 tablet. 04/22/18 [Rx] Follow up Appointment(s)/Referral(s): Keke Zavala DO [Primary Care Provider] - 1-2 days Chad Choi MD [Medical Doctor] - 1-2 Days (Patient to be set up for EGD tomorrow outpatient) Patient Instructions/Handouts: Chest Pain (ED) Activity/Diet/Wound Care/Special Instructions: Diet heart healthy Activity as tolerated Patient to be set up for outpatient EGD tomorrow Dr. adhikari Discharge Disposition: HOME SELF-CARE
[2018-04-22] MEDS: LISINOPRIL 10 MG TAB PO SCH (13:11)
[2018-04-22] MEDS: ALLOPURINOL 300 MG TAB PO SCH (13:12)
[2018-04-22] MEDS: MELOXICAM 7.5 MG TAB PO SCH (13:12)
--- NOTE | 2018-04-22 13:17 | P.PN ---
Subjective Mr. Reid is seen and examined resting comfortably in bed. Past medical history significant for hypertension, dyslipidemia and gastric cancer s/p partial colectomy. He initially came to the hospital with symptoms of epigastric discomfort and pleuritic chest pain. An acute event had been ruled out and he is schedule for a stress test today. He has also been seen by surgical services and is having an EGD today as well. He follows with [facility] in [place]. He denies any further chest or epigastric discomfort. Blood pressure 116/73 heart rate 85 afebrile maintaining oxygen saturation on room air. Laboratory data reviewed, hemoglobin 14.7, WBC 6.8, platelets 203, sodium 139, potassium 4.5, creatinine 0.91, cardiac enzymes negative 3, LDL 194, HDL 51, total cholesterol 266. GENERAL: Well-appearing, well-nourished and in no acute distress. NECK: Supple without JVD or thyromegaly. LUNGS: Breath sounds clear to auscultation bilaterally. Respiration equal and unlabored. No wheezes, rales or rhonchi. HEART: Regular rate and rhythm without murmurs, rubs or gallops. S1 and S2 heard. EXTREMITIES: Normal range of motion, no edema. No clubbing or cyanosis. Peripheral pulses intact. ASSESSMENT Chest pain, atypical. An acute coronary event has been ruled out. Hypertension. Dyslipidemia History of gastric cancer status post gastrectomy. Gastroesophageal reflux disease. Gout. Alcohol abuse. PLAN An acute coronary event has been ruled out. Exact etiology of chest pain is most likely secondary to gastric reflux, esophagitis. Stress test performed and is negative for stress induced ischemia. Recommend lifestyle modifications for lowering of LDL cholesterol. Alcohol cessation recommended. Stable from a cardiac perspective. 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 Nurse Practitioner note has been reviewed, I agree with a documented findings and plan of care. Patient was seen and examined. Objective - Vital Signs Vital signs: Vital Signs Temp 98.1 F 04/22/18 11:20 Pulse 85 04/22/18 11:20 Resp 16 04/22/18 11:20 BP 116/73 04/22/18 11:20 Pulse Ox 95 04/22/18 11:20 Intake & Output 04/21/18 04/22/18 04/22/18 18:59 06:59 18:59 Intake Total 360 Balance 360 Intake: Oral 360 Other: Voiding Method Toilet Toilet # Voids 2 - Labs CBC & Chem 7: 04/22/18 09:23 04/22/18 09:23 Labs: Abnormal Lab Results - Last 24 Hours (Table) 04/22/18 04/22/18 Range/Units 09:23 09:23 Lymphocytes # 0.6 L (1.0-4.8) k/uL Chloride 109 H (98-107) mmol/L Glucose 125 H (74-99) mg/dL AST 16 L (17-59) U/L Cholesterol 266 H (<200) mg/dL LDL Cholesterol, Calc 194 H (0-99) mg/dL
--- NOTE | 2018-04-22 14:00 | ECHOS ---
STRESS ECHOCARDIOGRAM INDICATIONS: Chest pain. BASELINE HEART RATE: 78 BASELINE BLOOD PRESSURE: 115/48 MAXIMUM HEART RATE: 144 MAXIMUM BLOOD PRESSURE: 162/89 85% MPHR: 135 100% MPHR: 159 METS: 9.1 MAXIMUM STAGE REACHED: 3 TOTAL EXERCISE TIME: 7:30 CLINICAL INFORMATION: STRESS DATA: Pretesting physical examination showed a heart rate of 78, pressure is 115/48 mmHg. Baseline EKG revealed sinus mechanism. The patient exercised on the treadmill according to Rl protocol for a total of 7 minutes and 30 seconds and achieved 9.1 METS. Max heart rate was 144, which is about 90% of maximum predicted heart rate. Maximum blood pressure was 162/89 mmHg. Clinically, the patient did not have any symptoms of chest pain or discomfort during the testing or on recovery. The EKG did not show any significant ST or T-wave abnormalities concerning for ischemia. ECHOCARDIOGRAM: On echocardiogram images from parasternal long axis view, parasternal short axis view, apical 4 chamber and apical 2 chamber view were obtained as the baseline images, at peak heart rate, as well as on recovery. The echocardiogram images showed good augmentation of the systolic function without any evidence of wall motion abnormalities concerning for ischemia. CONCLUSION: 1. Good exercise tolerance. 2. Normal EKG in response to exercise. 3. Normal echocardiographic in response to exercise. 4. Essentially normal stress echocardiogram. MMODL / IJN: [id number] /
== END 2018-04-22 14:35 | disposition home or self-care (01) ==
LOC: EC 21:41 → 1SOBS 04-21 00:26
PROVIDERS: ADMIT Internal Medicine; ATTEND Internal Medicine
DX: K21.0 Gastro-esophageal reflux disease with esophagitis (principal); R07.89 Other chest pain; R07.81 Pleurodynia; K30 Functional dyspepsia; Z85.028 Personal history of other malignant neoplasm of stomach; I10 Essential (primary) hypertension; E78.5 Hyperlipidemia, unspecified; M19.90 Unspecified osteoarthritis, unspecified site; M10.9 Gout, unspecified; F10.10 Alcohol abuse, uncomplicated; Z80.3 Family history of malignant neoplasm of breast; Z80.0 Family history of malignant neoplasm of digestive organs; Z82.49 Family history of ischemic heart disease and other diseases of the circulatory system; Z79.899 Other long term (current) drug therapy; Z91.013 Allergy to seafood; Z91.018 Allergy to other foods
CPT/HCPCS: 96374; 96375; 96376; 99285; 36415; 93005; 93306; 93351; 83880; 80061; 80053 ×3; 82150; 82550; 82553; 83690; 83735; 84484 ×2; 85025 ×3; 85610; 85730; 71046; 76700; G0378 ×2; J2270; J2930; Q9950